=== PATIENT | female | born 1990 | race Two or more races ===

== ENCOUNTER 2017-06-04 23:10 | Emergency (ER) | payer OTHER ==
[~2017-06-04] VITALS: Ht 170.2 cm; Wt 95.3 kg
[2017-06-04 23:30] VITALS: BP 147/92
[2017-06-04] MEDS ORDERED: Albuterol ud Inhalation HHN ONE (23:45)
[2017-06-04] MEDS ORDERED: Ketorolac 60mg Inj IM ONE (23:45)
[2017-06-04] MEDS ORDERED: AMOXICILLIN500 MG ORAL (23:45)
--- NOTE | 2017-06-05 00:01 | Emergency Room Report ---
History of Present Illness General Chief Complaint: Upper Respiratory Illness Source: Patient Present Illness HPI 26YOF [employer] walk-in with 1 week of dry cough, right sided sore throat, and difficulty breathing at night. Non-smoker Mother has asthma Went to [facility] 2 days ago - got cough syrup, ventolin. Using but no improvement. Cough worse at night Denies other med problems Allergies: Coded Allergies: No Known Allergies (Unverified , 06/04/17) Patient History Past Medical History: none Past Surgical History: none Pertinent Family History: asthma Social History: Denies: alcohol use, drug use, smoking Last Menstrual Period: 05/09/17 Now: No Immunizations: UTD Reviewed Nursing Documentation: PMH: Agreed, PSxH: Agreed Nursing Documentation-PMH Past Medical History: No Stated History Review of Systems All Other Systems: negative except mentioned in HPI Physical Exam Vital Signs Date Time Temp Pulse Resp B/P Pulse Ox O2 Delivery O2 Flow Rate FiO2 06/04/17 23:17 97.3 105 16 147/92 98 Room Air Sp02 EP Interpretation: reviewed, normal General Appearance: normal inspection, well appearing, no apparent distress, alert, GCS 15, non-toxic Head: normocephalic, atraumatic Eyes: bilateral eye EOMI, bilateral eye PERRL ENT: normal ENT inspection, hearing grossly normal, no angioedema, normal voice , other - Right tonsill swelling, inflammation pushing on uvula. No palpable right AUDIOVISUAL TECH Neck: normal inspection, full range of motion, supple, no meningismus, no bony tend Respiratory: normal inspection, lungs clear, normal breath sounds, no respiratory distress, no retraction, no wheezing Cardiovascular #1: regular rate, rhythm, no edema Gastrointestinal: normal inspection, normal bowel sounds, non tender, soft, no guarding, no hernia Genitourinary: no CVA tenderness Musculoskeletal: normal inspection, back normal, normal range of motion, Rose Mary' s Sign negative Neurologic: normal inspection, alert, oriented x3, responsive, basic acoustic analyst III-XII nml as tested, motor strength/tone normal, speech normal Psychiatric: normal inspection, judgement/insight normal, mood/affect normal Skin: normal inspection, normal color, no rash Medical Decision Making Diagnostic Impression: Primary Impression: Upper respiratory infection Qualified Codes: J06.9 - Acute upper respiratory infection, unspecified; B97.89 - Other viral agents as the cause of diseases classified elsewhere Additional Impression: Tonsillitis ER Course - Improved with albuterol neb in ED - Rx Amox for tonsillitis - Advised continued using albuterol/cough syrup already prescribed - Likely URI, bronchitis, now with right tonsillitis DC home Last Vital Signs Date Time Temp Pulse Resp B/P Pulse Ox O2 Delivery O2 Flow Rate FiO2 06/04/17 23:30 105 16 Room Air 06/04/17 23:30 97.3 147/92 98 Status: improved Disposition: HOME, SELF-CARE Condition: Improved Scripts Amoxicillin* (AMOXIL*) 500 Mg Capsule 500 MG ORAL THREE TIMES A DAY for 7 Days, #21 CAP Prov: NED SNIDER M.D. 06/04/17 Referrals: EMPLOYEE [employer],[facility] (PCP) Patient Instructions: Upper Respiratory Infection, Adult, Tonsillitis, Easy-to- Read Additional Instructions: - Finish ALL antibiotics as prescribed - Use albuterol inhaler during the day for cough and at night use cough syrup and tea with honey - Follow up with your primary care doctor in 2-3 days NED SNIDER M.D. Jun 05, 2017 00:01
[2017-06-05 00:16] VITALS: BP 147/92
== END 2017-06-05 00:16 | disposition home or self-care (01) ==
LOC: EMR 23:25
DX: J06.9 Acute upper respiratory infection, unspecified (principal); J03.90 Acute tonsillitis, unspecified
CPT/HCPCS: 94640; 96372; 99283

== ENCOUNTER 2017-06-08 07:41 | Emergency (ER) | payer OTHER ==
[~2017-06-08] VITALS: Ht 167.6 cm; Wt 95.3 kg
[~2017-06-08 07:41] MED LIST: AMOXICILLIN500 MG ORAL
[2017-06-08 07:55] VITALS: BP 150/91
--- NOTE | 2017-06-08 08:04 | Emergency Room Report ---
History of Present Illness General Chief Complaint: Dyspnea/Respdistress Source: Patient Present Illness HPI This is a 26-year-old female presented after increased cough for one week. Patient gradual onset of symptoms. Patient had been taking amoxicillin for several days for tonsillitis. Patient was noted to have cough with a yellow sputum. Patient reported having increased difficulty breathing. Patient had been previously seen at [facility] as well as a [facility] for similar symptoms. Patient stated that cough had not improved. She had been taking nebulizer treatments. Allergies: Coded Allergies: No Known Allergies (Unverified , 06/04/17) Patient History Past Medical History: see triage record Last Menstrual Period: 05/14/17 Now: No Reviewed Nursing Documentation: PMH: Agreed, PSxH: Agreed Nursing Documentation-PMH Past Medical History: No Stated History Review of Systems All Other Systems: negative except mentioned in HPI Physical Exam Vital Signs Date Time Temp Pulse Resp B/P Pulse Ox O2 Delivery O2 Flow Rate FiO2 06/08/17 07:45 98.8 110 15 130/88 93 Room Air Sp02 EP Interpretation: reviewed, normal General Appearance: normal inspection, well appearing, no apparent distress, alert, GCS 15 Head: atraumatic ENT: normal ENT inspection, hearing grossly normal, normal voice, tonsillar swelling Neck: normal inspection, full range of motion, supple, no bony tend Respiratory: normal inspection, no respiratory distress, no retraction, rhonchi - right lung Cardiovascular #1: regular rate, rhythm, no edema Gastrointestinal: normal inspection, normal bowel sounds, non tender, soft, no guarding, no hernia Genitourinary: no CVA tenderness Musculoskeletal: normal inspection, back normal, normal range of motion Neurologic: normal inspection, alert, oriented x3, responsive, projects manager III-XII nml as tested, speech normal Psychiatric: normal inspection, judgement/insight normal, mood/affect normal Skin: normal inspection, normal color, no rash Medical Decision Making ER Course Presented for cough. Differential diagnosis included but was not limited to bronchitis, pneumonia, pulmonary embolism, pericarditis, asthma, foreign body. Chest x-ray was ordered one view due to patient's worsening cough and difficulty with to breathing.The patient was noted to have adequate oxygen saturation.A chest x-ray showed a right lung atelectasis. Patient was given breathing treatment as well as by mouth Decadron. The patient was noted to be on antibiotics is advised to continue her antibiotics.The patient is advised to follow up with primary care doctor in 1-2 days. Patient is advised to return if any worsening condition or if any changes in status that are concerning. Chest X-Ray Diagnostic Results Chest X-Ray Diagnostic Results : Chest X-Ray Ordered: Yes # of Views/Limited/Complete: 1 View Indication: Chest Pain EP Interpretation: Yes Interpretation: no consolidation, no effusion, no pneumothorax, other - atelectasis Impression: No acute disease Interpreting ER Provider: Electronically signed by Dr. Mick Mancini M.D. Last Vital Signs Date Time Temp Pulse Resp B/P Pulse Ox O2 Delivery O2 Flow Rate FiO2 06/08/17 07:45 98.8 110 15 130/88 93 Room Air Status: improved Disposition: HOME, SELF-CARE Condition: Scripts Loratadine (CLARITIN) 10 Mg Capsule 10 MG ORAL DAILY, #30 CAP Prov: Mick Mancini 06/08/17 Mick Mancini Jun 08, 2017 08:04
[2017-06-08] MEDS ORDERED: DuoNeb 0.5-3(2.5)mg/3ml neb HHN ONE (08:15)
[2017-06-08] MEDS ORDERED: CLARITIN10 M2 ORAL (08:56)
--- NOTE | 2017-06-08 09:11 | Diagnostic Imaging Report ---
Indication: Shortness of breath Technique: XRAY CHEST 1 V Comparison: None Findings: Cardiomediastinal silhouette is within normal limits. There is slight hazy appearance in the right medial lung base. Osseous structures demonstrate no acute abnormality. Impression: Slight hazy appearance in the right medial lung base and a subtle infiltrate cannot be excluded. Clinical correlation/followup recommended.
[2017-06-08] MEDS ORDERED: ALBUTEROL2.5 MG/3 M INH (09:16)
[2017-06-08 09:19] VITALS: BP 141/88
== END 2017-06-08 09:25 | disposition home or self-care (01) ==
LOC: EMR 08:07
DX: R05 Cough (principal); J98.11 Atelectasis; R07.9 Chest pain, unspecified
CPT/HCPCS: 71010; 81025; 94640; 94664; 99283; J8540; J7620

== ENCOUNTER 2017-11-09 09:49 | Emergency (ER) | payer OTHER ==
[~2017-11-09] VITALS: Ht 167.6 cm; Wt 99.8 kg
[~2017-11-09 09:49] MED LIST changes: +ALBUTEROL2.5 MG/3 M INH; +CLARITIN10 M2 ORAL
[2017-11-09] MEDS ORDERED: CRYSELLE1 EACH ORAL (09:58)
[2017-11-09 10:15] VITALS: BP 154/93
--- NOTE | 2017-11-09 10:28 | Emergency Room Report ---
History of Present Illness General Chief Complaint: Abdominal Pain Source: Patient Present Illness HPI 27-year-old female with no sig pmhx p/w nausea vomiting diarrhea for one day Pt reports n/v, 4 episodes of nbnb vomiting, 4 episodes of watery non bloody diarrhea Also complains of abdominal pain, Patient states pain started gradually after throwing up, localized to epigastric area, non radiating, burning in nature, intermittent. No relieving or exacerbating factors. Severity is 5/10. Denies fever, chills. No hx of abdominal surgeries. No hx of endoscopies/colonoscopies. No recent travel, no recent antibiotic use Allergies: Coded Allergies: No Known Allergies (Unverified , 06/04/17) Patient History Past Medical History: see triage record Past Surgical History: none Pertinent Family History: none Last Menstrual Period: 09/2017 Now: No Reviewed Nursing Documentation: PMH: Agreed, PSxH: Agreed Nursing Documentation-PMH Past Medical History: No History, Except For Review of Systems All Other Systems: negative except mentioned in HPI Physical Exam Vital Signs Date Time Temp Pulse Resp B/P (MAP) Pulse Ox O2 Delivery O2 Flow Rate FiO2 11/09/17 09:53 97.3 77 16 145/89 99 Room Air Sp02 EP Interpretation: reviewed, normal General Appearance: alert, GCS 15, non-toxic, mild distress Head: normocephalic, atraumatic Eyes: bilateral eye normal inspection, bilateral eye PERRL, bilateral eye EOMI ENT: normal ENT inspection, normal pharynx, normal voice, moist mucus membranes Neck: normal inspection, full range of motion, supple Respiratory: normal inspection, lungs clear, normal breath sounds, no respiratory distress, no retraction, no wheezing, speaking full sentences, chest symmetrical Cardiovascular #1: normal inspection, regular rate, rhythm, normal capillary refill Cardiovascular #2: 2+ radial (R), 2+ radial (L) Gastrointestinal: soft, non-distended, no guarding, other - mild epigastric tenderness, nontender all other parts of abdomen Musculoskeletal: normal inspection, back normal, normal range of motion, non- tender Neurologic: normal inspection, alert, oriented x3, responsive, motor strength/ tone normal, sensory intact, normal gait, speech normal Psychiatric: normal inspection, judgement/insight normal, memory normal Skin: normal inspection, normal color, no rash, warm/dry, well hydrated, normal turgor Medical Decision Making Diagnostic Impression: Primary Impression: Nausea, vomiting and diarrhea ER Course 27-year-old female with nausea vomiting diarrhea abdominal pain Differential Diagnosis: Gastritis, gastroenteritis, cholecystitis, appendicitis, diverticulitis, UTI/ pyelo At this time abdomen is soft nontender, not likely to have acute intra- abdominal surgical pathology, will hold CT for now. Right upper quadrant is nontender Plan: Basic labs, ua Pepcid, Zofran pain control, IVF ER course: Patient has remained stable during ED stay. Pain improved. Repeat abdominal exam is nontender. Tolerating PO labs unremarkable Disposition: Patient is to be discharged to home. Patient is instructed to follow up with their primary care doctor within 5 days. Strict return precautions discussed with patient such as fever, chills, worsening/severe abdominal pain, nausea, vomiting, black or bloody stools, which may indicate severe illness. Patient verbalizes understanding and agrees with plan. Please note that this Emergency Department Report was dictated using [employer] polisher hand technology software, occasionally this can lead to erroneous entry secondary to interpretation by the dictation equipment Rhythm Strip EP Interpretation: Yes Rate: 80 Rhythm: NSR, no PVCs, no ectopy Laboratory Tests Test 11/09/17 10:15 White Blood Count 13.0 K/UL (4.8-10.8) H Red Blood Count 4.92 M/UL (4.20-5.40) Hemoglobin 11.5 G/DL (12.0-16.0) L Hematocrit 37.7 % (37.0-47.0) Mean Corpuscular Volume 77 FL (80-99) L Mean Corpuscular Hemoglobin 23.4 PG (27.0-31.0) L Mean Corpuscular Hemoglobin Concent 30.5 G/DL (32.0-36.0) L Red Cell Distribution Width 16.6 % (11.6-14.8) H Platelet Count 496 K/UL (150-450) H Mean Platelet Volume 5.0 FL (6.5-10.1) L Neutrophils (%) (Auto) 71.0 % (45.0-75.0) Lymphocytes (%) (Auto) 21.4 % (20.0-45.0) Monocytes (%) (Auto) 6.2 % (1.0-10.0) Eosinophils (%) (Auto) 0.6 % (0.0-3.0) Basophils (%) (Auto) 0.8 % (0.0-2.0) Urine Color Pale yellow Urine Appearance Clear Urine pH 6 (4.5-8.0) Urine Specific Gregory 1.015 (1.005-1.035) Urine Protein 3+ (NEGATIVE) H Urine Glucose (UA) Negative (NEGATIVE) Urine Ketones Negative (NEGATIVE) Urine Occult Blood 5+ (NEGATIVE) H Urine Nitrite Negative (NEGATIVE) Urine Bilirubin Negative (NEGATIVE) Urine Urobilinogen Normal MG/DL (0.0-1.0) Urine Leukocyte Esterase 1+ (NEGATIVE) H Urine RBC 5-10 /HPF (0 - 2) H Urine WBC 2-4 /HPF (0 - 2) Urine Squamous Epithelial Cells Few /LPF (NONE/OCC) Urine Bacteria Few /HPF (NONE) Urine HCG, Qualitative Negative Sodium Level 139 MMOL/L (136-145) Potassium Level 4.0 MMOL/L (3.5-5.1) Chloride Level 103 MMOL/L (98-107) Carbon Dioxide Level 25 MMOL/L (21-32) Anion Gap 12 mmol/L (5-15) Blood Urea Nitrogen 6 mg/dL (7-18) L Creatinine 0.7 MG/DL (0.55-1.30) Estimate Glomerular Filtration Rate > 60 mL/min (>60) Glucose Level 95 MG/DL (74-106) Calcium Level 9.3 MG/DL (8.5-10.1) Total Bilirubin 0.3 MG/DL (0.2-1.0) Aspartate Amino Transferase (AST) 16 U/L (15-37) Alanine Aminotransferase (ALT) 19 U/L (12-78) Alkaline Phosphatase 66 U/L (46-116) Total Protein 9.3 G/DL (6.4-8.2) H Albumin 3.5 G/DL (3.4-5.0) Globulin 5.8 g/dL Albumin/Globulin Ratio 0.6 (1.0-2.7) L Lipase 67 U/L (73-393) L Last Vital Signs Date Time Temp Pulse Resp B/P (MAP) Pulse Ox O2 Delivery O2 Flow Rate FiO2 11/09/17 09:53 97.3 77 16 145/89 99 Room Air Disposition: HOME, SELF-CARE Condition: Improved Scripts Ondansetron Odt* (ZOFRAN ODT*) 4 Mg Tab.rapdis 4 MG ORAL Q6H Y for Nausea & Vomiting, #10 TAB 0 Refills Prov: Ryan Stark M.D. 11/09/17 Referrals: [facility] (PCP) Ryan Stark M.D. Nov 09, 2017 10:28
[2017-11-09 10:33] LABS: APPEARANCE,URINE CLEAR; BASOPHILS % (AUTO) 0.8 % (0.0-2.0); EOSINOPHILS % (AUTO) 0.6 % (0.0-3.0); KETONES,URINE NEGATIVE (NEGATIVE); LEUKOCYTE ESTERASE ,URINE 1+ (NEGATIVE); LYMPHOCYTES % (AUTO) 21.4 % (20.0-45.0); MEAN CORPUSCULAR HEMOGLOBIN 23.4 PG (27.0-31.0); MEAN CORPUSCULAR HGB CONC 30.5 G/DL (32.0-36.0); MEAN CORPUSCULAR VOLUME 77 FL (80-99); MONOCYTES % (AUTO) 6.2 % (1.0-10.0); NITRITE,URINE NEGATIVE (NEGATIVE); PH,URINE 6 (4.5-8.0); PLATELET COUNT 496 K/UL (150-450); PROTEIN,URINE 3+ (NEGATIVE); RED BLOOD COUNT 4.92 M/UL (4.20-5.40); RED CELL DISTRIBUTION WIDTH 16.6 % (11.6-14.8); UROBILINOGEN,URINE NORMAL MG/DL (0.0-1.0)
[2017-11-09 10:50] LABS: ANION GAP 12 mmol/L (5-15); BACTERIA,URINE FEW /HPF; CALCIUM 9.3 MG/DL (8.5-10.1); CARBON DIOXIDE 25 MMOL/L (21-32); CHLORIDE 103 MMOL/L (98-107); CREATININE 0.7 MG/DL (0.55-1.30); GLOMERULAR FILTRATION RATE > 60 mL/min (>60); SODIUM 139 MMOL/L (136-145); SQUAMOUS EPITHELIAL CELL,UR FEW /LPF (NONE/OCC)
[2017-11-09 10:54] LABS: ALANINE AMINOTRANSFERASE 19 U/L (12-78); ALBUMIN/GLOBULIN RATIO 0.6 (1.0-2.7); ASPARTATE AMINO TRANSFERASE 16 U/L (15-37); LIPASE 67 U/L (73-393); TOTAL PROTEIN 9.3 G/DL (6.4-8.2)
[2017-11-09] MEDS ORDERED: ZOFRAN ODT4 MG ORAL (11:07)
[2017-11-09 11:15] VITALS: BP 127/77
== END 2017-11-09 11:15 | disposition home or self-care (01) ==
LOC: EMR 10:00
DX: R11.2 Nausea with vomiting, unspecified (principal); R19.7 Diarrhea, unspecified
CPT/HCPCS: 36415; 80053; 81003; 81025; 83690; 85025; 96361; 96374; 96375; 99284; J2405; S0028

== ENCOUNTER 2018-02-15 07:03 | Emergency (ER) | payer OTHER ==
[~2018-02-15] VITALS: Ht 167.6 cm; Wt 99.8 kg
[~2018-02-15 07:03] MED LIST changes: +CRYSELLE1 EACH ORAL; +ZOFRAN ODT4 MG ORAL
--- NOTE | 2018-02-15 07:53 | Emergency Room Report ---
History of Present Illness General Chief Complaint: Abdominal Pain Source: Patient Present Illness HPI The patient presents with epigastric pain and vomiting. This began last night. She's drinking beer and had some unusual foods. She's been not vomiting blood and has no melena. She does have diarrhea but brown in color. She states her last period was February 06 in normal for her. She's had chills without documented fever. The pain is 5/10 and burning. She's had this problem before. Patient also states that she is anemic. No headache, joint pain, dysuria, rashes. Allergies: Coded Allergies: No Known Allergies (Unverified , 02/15/18) Patient History Past Medical History: see triage record Social History: Reports: alcohol use Social History Narrative with Mom Last Menstrual Period: 02/06/18 Now: No Reviewed Nursing Documentation: PMH: Agreed; PSxH: Agreed Nursing Documentation-PMH Past Medical History: No History, Except For Review of Systems All Other Systems: negative except mentioned in HPI Physical Exam Vital Signs Date Time Temp Pulse Resp B/P (MAP) Pulse Ox O2 Delivery O2 Flow Rate FiO2 02/15/18 07:05 97.9 85 18 141/93 98 Room Air 97.9 Sp02 EP Interpretation: reviewed, normal General Appearance: well appearing, GCS 15, mild distress - with vomiting Head: normocephalic Eyes: bilateral eye normal inspection, bilateral eye PERRL ENT: moist mucus membranes Neck: supple Respiratory: lungs clear, normal breath sounds Cardiovascular #1: regular rate, rhythm Cardiovascular #2: 2+ radial (R) Gastrointestinal: normal inspection, normal bowel sounds, no mass, non- distended, no guarding, no rebound, tenderness - epigastric, minimal, overweight Genitourinary: no CVA tenderness Musculoskeletal: back normal, gait/station normal, normal range of motion Neurologic: alert, oriented x3, grossly normal Psychiatric: anxious Skin: normal inspection, warm/dry Medical Decision Making Diagnostic Impression: Primary Impression: Abdominal pain Qualified Codes: R10.13 - Epigastric pain Additional Impressions: Nausea & vomiting Qualified Codes: R11.2 - Nausea with vomiting, unspecified UTI (urinary tract infection) Qualified Codes: N30.00 - Acute cystitis without hematuria ER Course Patient presents with epigastric pain. Differential includes gastritis, GERD, he has gastroenteritis, food poisoning, pancreatitis amongst others. Evaluation will be with labs. She will be with IV hydration, Pepcid Zofran and morphine. Pain not in RUQ - doubt gall bladder disease. Repeat zofran needed. Labs unremarkable except for pyuria. Rocephin given. Tolerating oral intake. Improved. Patient stable for outpatient observation and treatment. Laboratory Tests Test 02/15/18 08:22 02/15/18 08:40 02/15/18 10:05 Sodium Level 137 MMOL/L (136-145) Potassium Level 4.4 MMOL/L (3.5-5.1) Chloride Level 104 MMOL/L (98-107) Carbon Dioxide Level 26 MMOL/L (21-32) Anion Gap 7 mmol/L (5-15) Blood Urea Nitrogen 4 mg/dL (7-18) L Creatinine 0.6 MG/DL (0.55-1.30) Estimate Glomerular Filtration Rate > 60 mL/min (>60) Glucose Level 96 MG/DL (74-106) Calcium Level 8.7 MG/DL (8.5-10.1) Total Bilirubin 0.3 MG/DL (0.2-1.0) Aspartate Amino Transferase (AST) 46 U/L (15-37) H Alanine Aminotransferase (ALT) 41 U/L (12-78) Alkaline Phosphatase 64 U/L (46-116) Total Protein 8.6 G/DL (6.4-8.2) H Albumin 3.4 G/DL (3.4-5.0) Globulin 5.2 g/dL Albumin/Globulin Ratio 0.7 (1.0-2.7) L Lipase 182 U/L (73-393) White Blood Count 8.8 K/UL (4.8-10.8) Red Blood Count 4.86 M/UL (4.20-5.40) Hemoglobin 12.6 G/DL (12.0-16.0) Hematocrit 39.8 % (37.0-47.0) Mean Corpuscular Volume 82 FL (80-99) Mean Corpuscular Hemoglobin 26.0 PG (27.0-31.0) L Mean Corpuscular Hemoglobin Concent 31.7 G/DL (32.0-36.0) L Red Cell Distribution Width 17.9 % (11.6-14.8) H Platelet Count 354 K/UL (150-450) Mean Platelet Volume 5.2 FL (6.5-10.1) L Neutrophils (%) (Auto) 69.3 % (45.0-75.0) Lymphocytes (%) (Auto) 24.8 % (20.0-45.0) Monocytes (%) (Auto) 4.5 % (1.0-10.0) Eosinophils (%) (Auto) 0.5 % (0.0-3.0) Basophils (%) (Auto) 0.9 % (0.0-2.0) Urine Color [place] Urine Appearance Slightly cloudy Urine pH 6.5 (4.5-8.0) Urine Specific Yale 1.015 (1.005-1.035) Urine Protein 2+ (NEGATIVE) H Urine Glucose (UA) Negative (NEGATIVE) Urine Ketones Negative (NEGATIVE) Urine Occult Blood 3+ (NEGATIVE) H Urine Nitrite Negative (NEGATIVE) Urine Bilirubin Negative (NEGATIVE) Urine Ictotest Negative Urine Urobilinogen Normal MG/DL (0.0-1.0) Urine Leukocyte Esterase 1+ (NEGATIVE) H Urine RBC 15-20 /HPF (0 - 2) H Urine WBC 10-15 /HPF (0 - 2) H Urine Squamous Epithelial Cells Moderate /LPF (NONE/OCC) H Urine Bacteria Few /HPF (NONE) Urine HCG, Qualitative Negative (NEGATIVE) Last Vital Signs Date Time Temp Pulse Resp B/P (MAP) Pulse Ox O2 Delivery O2 Flow Rate FiO2 02/15/18 11:37 74 16 139/90 97 Room Air 02/15/18 11:34 97.7 97.7 Status: improved Disposition: HOME, SELF-CARE Condition: Improved Scripts Nitrofurantoin Monohyd/M-Cryst* (MACROBID 100 MG*) 100 Mg Capsule 100 MG ORAL EVERY 12 HOURS, #14 CAP Prov: Dannie Alvarez M.D. 02/15/18 Tramadol Hcl* (ULTRAM*) 50 Mg Tablet 50 MG ORAL Q6H PRN for For Pain, #6 TAB 0 Refills Prov: Dannie Alvarez M.D. 02/15/18 Famotidine (PEPCID) 20 Mg Tablet 20 MG ORAL DAILY, #30 TAB 0 Refills Prov: Dannie Alvarez M.D. 02/15/18 Ondansetron Odt* (ZOFRAN ODT*) 4 Mg Tab.rapdis 4 MG ORAL Q8H PRN for Nausea & Vomiting, #6 TAB 0 Refills Prov: Dannie Alvarez M.D. 02/15/18 Dannie Alvarez M.D. Feb 15, 2018 07:53
[2018-02-15] MEDS ORDERED: Morphine Sulfate 4mg/ml Inj IVP ONE (08:00)
[2018-02-15 08:46] LABS: ANION GAP 7 mmol/L (5-15); BLOOD UREA NITROGEN 4 mg/dL (7-18); CALCIUM 8.7 MG/DL (8.5-10.1); CARBON DIOXIDE 26 MMOL/L (21-32); CHLORIDE 104 MMOL/L (98-107); CREATININE 0.6 MG/DL (0.55-1.30); POTASSIUM 4.4 MMOL/L (3.5-5.1); SODIUM 137 MMOL/L (136-145)
[2018-02-15 08:50] LABS: ALANINE AMINOTRANSFERASE 41 U/L (12-78); ALBUMIN 3.4 G/DL (3.4-5.0); ALBUMIN/GLOBULIN RATIO 0.7 (1.0-2.7); ALKALINE PHOSPHATASE 64 U/L (46-116); ASPARTATE AMINO TRANSFERASE 46 U/L (15-37); BILIRUBIN,TOTAL 0.3 MG/DL (0.2-1.0)
[2018-02-15 09:09] LABS: BASOPHILS % (AUTO) 0.9 % (0.0-2.0); EOSINOPHILS % (AUTO) 0.5 % (0.0-3.0); HEMATOCRIT 39.8 % (37.0-47.0); HEMOGLOBIN 12.6 G/DL (12.0-16.0); LYMPHOCYTES % (AUTO) 24.8 % (20.0-45.0); MEAN CORPUSCULAR VOLUME 82 FL (80-99); MONOCYTES % (AUTO) 4.5 % (1.0-10.0); NEUTROPHILS % (AUTO) 69.3 % (45.0-75.0); PLATELET COUNT 354 K/UL (150-450); RED BLOOD COUNT 4.86 M/UL (4.20-5.40); RED CELL DISTRIBUTION WIDTH 17.9 % (11.6-14.8); WHITE BLOOD COUNT 8.8 K/UL (4.8-10.8)
[2018-02-15 09:38] VITALS: BP 134/98
[2018-02-15 10:25] LABS: APPEARANCE,URINE SLIGHTLY CLOUDY; BILIRUBIN, URINE NEGATIVE (NEGATIVE); COLOR,URINE AMBER; GLUCOSE, URINE (UA) NEGATIVE (NEGATIVE); KETONES,URINE NEGATIVE (NEGATIVE); LEUKOCYTE ESTERASE ,URINE 1+ (NEGATIVE); NITRITE,URINE NEGATIVE (NEGATIVE); PH,URINE 6.5 (4.5-8.0); PROTEIN,URINE 2+ (NEGATIVE); UROBILINOGEN,URINE NORMAL MG/DL (0.0-1.0)
[2018-02-15] MEDS ORDERED: PEPCID20 MG ORAL (10:37)
[2018-02-15] MEDS ORDERED: ZOFRAN ODT4 MG ORAL (10:37)
[2018-02-15] MEDS ORDERED: TRAMADOL HCL50 MG ORAL (10:37)
[2018-02-15] MEDS ORDERED: cefTRIAXone 1 GM in NS 55 ML IVPB ONE (11:00)
[2018-02-15] MEDS ORDERED: NITROFURANTOIN100 M2 ORAL (11:09)
[2018-02-15 11:37] VITALS: BP 139/90
== END 2018-02-15 11:34 | disposition home or self-care (01) ==
LOC: EMR 08:04
DX: R10.13 Epigastric pain (principal); R11.2 Nausea with vomiting, unspecified; N30.00 Acute cystitis without hematuria
CPT/HCPCS: 36415; 80053; 81003; 81025; 83690; 85025; 87086; 96361; 96374; 96375; 99284; J0696; J2270; J2405; S0028

== ENCOUNTER 2018-06-09 19:52 | Emergency (ER) | payer OTHER ==
[~2018-06-09] VITALS: Ht 167.6 cm; Wt 97.5 kg
[~2018-06-09 19:52] MED LIST changes: +NITROFURANTOIN100 M2 ORAL; +PEPCID20 MG ORAL; +TRAMADOL HCL50 MG ORAL
[2018-06-09 20:38] LABS: EOSINOPHILS % (AUTO) 0.8 % (0.0-3.0); HEMATOCRIT 43.5 % (37.0-47.0); HEMOGLOBIN 14.3 G/DL (12.0-16.0); LYMPHOCYTES % (AUTO) 10.1 % (20.0-45.0); MEAN CORPUSCULAR VOLUME 86 FL (80-99); MONOCYTES % (AUTO) 5.2 % (1.0-10.0); NEUTROPHILS % (AUTO) 82.9 % (45.0-75.0); PLATELET COUNT 333 K/UL (150-450); RED BLOOD COUNT 5.08 M/UL (4.20-5.40); RED CELL DISTRIBUTION WIDTH 14.8 % (11.6-14.8); WHITE BLOOD COUNT 17.2 K/UL (4.8-10.8)
[2018-06-09 20:39] LABS: ANION GAP 10 mmol/L (5-15); BLOOD UREA NITROGEN 9 mg/dL (7-18); CALCIUM 9.6 MG/DL (8.5-10.1); CARBON DIOXIDE 24 MMOL/L (21-32); CHLORIDE 101 MMOL/L (98-107); CREATININE 0.7 MG/DL (0.55-1.30); POTASSIUM 4.2 MMOL/L (3.5-5.1); SODIUM 135 MMOL/L (136-145)
[2018-06-09 20:43] LABS: ALANINE AMINOTRANSFERASE 38 U/L (12-78); ALBUMIN 3.8 G/DL (3.4-5.0); ALBUMIN/GLOBULIN RATIO 0.7 (1.0-2.7); ALKALINE PHOSPHATASE 96 U/L (46-116); ASPARTATE AMINO TRANSFERASE 25 U/L (15-37); BILIRUBIN,TOTAL 0.5 MG/DL (0.2-1.0)
[2018-06-09 21:11] VITALS: BP 129/97
--- NOTE | 2018-06-09 21:12 | Emergency Room Report ---
History of Present Illness General Chief Complaint: Nausea, Vomiting, and Diarrhea Source: Patient Present Illness HPI 27-year-old female presents with central abdominal pain, multiple episodes of nausea, vomiting and diarrhea after eating [employer] breakfast morning. No previous abdominal pelvic surgery, no other known medical problems. No urinary complaints. Unable to tolerate by mouth, food or water since. Allergies: Coded Allergies: MORPHINE (Verified Allergy, Mild, pruritis, 06/09/18) Patient History Past Medical History: none Past Surgical History: none Pertinent Family History: none Social History: Denies: smoking, alcohol use, drug use Last Menstrual Period: 06/01/18 Now: No Immunizations: UTD Reviewed Nursing Documentation: PMH: Agreed; PSxH: Agreed Review of Systems All Other Systems: negative except mentioned in HPI Physical Exam Vital Signs Date Time Temp Pulse Resp B/P (MAP) Pulse Ox O2 Delivery O2 Flow Rate FiO2 06/09/18 19:59 98.2 91 18 129/97 98 Room Air 98.2 Sp02 EP Interpretation: reviewed, normal General Appearance: normal inspection, well appearing, no apparent distress, alert, GCS 15, non-toxic, obese Head: normocephalic, atraumatic Eyes: bilateral eye PERRL, bilateral eye EOMI ENT: normal ENT inspection, hearing grossly normal, normal pharynx, no angioedema, normal voice, TMs + canals normal, uvula midline, moist mucus membranes Neck: normal inspection, full range of motion, supple, thyroid normal, no meningismus, no bony tend Respiratory: normal inspection, lungs clear, normal breath sounds, no rhonchi, no respiratory distress, no retraction, no accessory muscle use, no wheezing, speaking full sentences Cardiovascular #1: regular rate, rhythm, no edema, no JVD, normal capillary refill Gastrointestinal: normal inspection, normal bowel sounds, soft, no mass, no peritonitis, non-distended, no guarding, no hernia, no pulsatile mass, other - RLQ ttp Genitourinary: no CVA tenderness Musculoskeletal: normal inspection, back normal, normal range of motion, no calf tenderness, pelvis stable, Rose Mary's Sign negative Neurologic: normal inspection, alert, oriented x3, responsive, clinical reimbursement specialist III-XII nml as tested, motor strength/tone normal, cerebellar normal, normal gait, speech normal Psychiatric: normal inspection, judgement/insight normal, mood/affect normal, no suicidal/homicidal ideation, no delusions Skin: normal inspection, normal color, no rash Lymphatic: normal inspection, no adenopathy Medical Decision Making Diagnostic Impression: Primary Impression: Abdominal pain Qualified Codes: R10.31 - Right lower quadrant pain Additional Impression: Nausea, vomiting, and diarrhea ER Course VSS, afebrile RLQ ttp on exam No peritonitis Elevated leukocytosis Concern for acute appendicitis versus viral gastroenteritis, versus food poisoning Was given Zofran, IV Pepcid Signed out to Dr Alvarez at 10pm to followup CTAP Last Vital Signs Date Time Temp Pulse Resp B/P (MAP) Pulse Ox O2 Delivery O2 Flow Rate FiO2 06/09/18 19:59 98.2 91 18 129/97 98 Room Air 98.2 Status: improved NED SNIDER M.D. Jun 09, 2018 21:12
[2018-06-09 22:17] LABS: APPEARANCE,URINE CLEAR; BILIRUBIN, URINE NEGATIVE (NEGATIVE); COLOR,URINE YELLOW; GLUCOSE, URINE (UA) NEGATIVE (NEGATIVE); KETONES,URINE 1+ (NEGATIVE); LEUKOCYTE ESTERASE ,URINE 1+ (NEGATIVE); NITRITE,URINE NEGATIVE (NEGATIVE); PH,URINE 5 (4.5-8.0); PROTEIN,URINE 2+ (NEGATIVE); UROBILINOGEN,URINE NORMAL MG/DL (0.0-1.0)
[2018-06-10] MEDS ORDERED: TRAMADOL HCL50 MG ORAL (00:26)
[2018-06-10] MEDS ORDERED: ONDANSETRON ODT4 MG BC (00:26)
[2018-06-10 00:27] VITALS: BP 141/83
[2018-06-10 00:30] VITALS: BP 141/83
--- NOTE | 2018-06-10 09:22 | Diagnostic Imaging Report ---
Indication: Abdominal pain Technique: Continuous helical transaxial imaging of the abdomen and pelvis was obtained from the lung bases to the pubic symphysis. No intravenous contrast was administered. Coronal 2-D reformats were also obtained. Automatic Exposure Control was utilized. Total Dose length Product (DLP): 1105.[address] Dose Index Volume (CTDIvol): 19.95 mGy Comparison: none Findings: The lung bases are clear. The liver is hypodense consistent with fatty infiltration. There is liquefied stool in the colon. Correlate for diarrhea and enteritis. No free fluid, free air or evidence of bowel obstruction. The uterus is noted. Urinary bladder is unremarkable. There is no hydronephrosis. IMPRESSION: Query enteritis and diarrhea. Correlate clinically. Fatty liver The CT scanner at [facility] is accredited by the [employer] and the scans are performed using dose optimization techniques as appropriate to a performed exam including Automatic Exposure control.
== END 2018-06-10 00:40 | disposition home or self-care (01) ==
LOC: EMR 20:39
DX: R10.9 Unspecified abdominal pain (principal); R11.2 Nausea with vomiting, unspecified; R19.7 Diarrhea, unspecified; Z88.5 Allergy status to narcotic agent
CPT/HCPCS: 36415; 74176; 80053; 81003; 81025; 83690; 85025; 96361; 96374; 96375; 99284; J2405; S0028

== ENCOUNTER 2018-08-10 02:59 | Emergency (ER) | payer OTHER ==
[~2018-08-10] VITALS: Ht 167.6 cm; Wt 90.7 kg
[~2018-08-10 02:59] MED LIST changes: +ONDANSETRON ODT4 MG BC
--- NOTE | 2018-08-10 03:29 | Emergency Room Report ---
History of Present Illness General Chief Complaint: Alcohol Intoxication Source: Patient, Medical Record Present Illness HPI This 27-year-old female with history of anxiety. She presents with chief complaint of nausea vomiting and abdominal pain. She was drinking heavily tonight. She was vomiting in the bathroom and mom says she passed out. She is crying now. No fever chills. No diarrhea. Vomiting is none bloody and nonbilious. Cramping pain. [place] anxious. No other injury. Allergies: Coded Allergies: MORPHINE (Verified Allergy, Mild, pruritis, 06/09/18) Patient History Past Medical History: see triage record, old chart reviewed Past Surgical History: none Pertinent Family History: none Social History: Reports: alcohol use; Denies: smoking Last Menstrual Period: 07/26/2018 Now: No Immunizations: other Reviewed Nursing Documentation: PMH: Agreed; PSxH: Agreed Nursing Documentation-PMH Past Medical History: No History, Except For Review of Systems Eye: Denies: eye pain, blurred vision ENT: Denies: ear pain, nose congestion, throat swelling Respiratory: Denies: cough, shortness of breath Cardiovascular: Denies: chest pain, palpitations Gastrointestinal: Reports: abdominal pain, nausea, vomiting; Denies: diarrhea Musculoskeletal: Denies: back pain, joint pain Skin: Denies: rash Neurological: Denies: headache, numbness Endocrine: Denies: increased thirst, increased urine Hematologic/Lymphatic: Denies: easy bruising All Other Systems: negative except mentioned in HPI Physical Exam Vital Signs Date Time Temp Pulse Resp B/P (MAP) Pulse Ox O2 Delivery O2 Flow Rate FiO2 08/10/18 03:06 97.2 100 19 118/71 98 Room Air 97.2 vitals normal Sp02 EP Interpretation: reviewed, normal General Appearance: well appearing, no apparent distress, alert Head: normocephalic, atraumatic Eyes: bilateral eye PERRL, bilateral eye EOMI ENT: hearing grossly normal, normal pharynx Neck: full range of motion, supple, no meningismus Respiratory: chest non-tender, lungs clear, normal breath sounds Cardiovascular #1: regular rate, rhythm, no murmur Gastrointestinal: normal bowel sounds, non tender, no mass, no organomegaly, no bruit, non-distended Musculoskeletal: back normal, gait/station normal, normal range of motion Psychiatric: mood/affect normal Skin: warm/dry Medical Decision Making Diagnostic Impression: Primary Impression: Acute alcoholic intoxication Qualified Codes: F10.929 - Alcohol use, unspecified with intoxication, unspecified ER Course She presents with nausea vomiting and anxiety secondary to alcohol intoxication. She is otherwise stable. No evidence of any head trauma. Better now. Sleeping comfortably. We'll discharge home. Lab Results Impression labs normal Last Vital Signs Date Time Temp Pulse Resp B/P (MAP) Pulse Ox O2 Delivery O2 Flow Rate FiO2 08/10/18 03:06 97.2 100 19 118/71 98 Room Air 97.2 Status: improved Disposition: HOME, SELF-CARE Condition: Stable Patient Instructions: Alcohol Intoxication, [id number] Additional Instructions: Did not drink to excess. Follow-up with your doctor in 7 days. Return if worse. ANTHONY CM M.D. Aug 10, 2018 03:29
[2018-08-10 03:40] LABS: BASOPHILS % (AUTO) 0.4 % (0.0-2.0); EOSINOPHILS % (AUTO) 0.3 % (0.0-3.0); HEMATOCRIT 42.2 % (37.0-47.0); HEMOGLOBIN 13.5 G/DL (12.0-16.0); LYMPHOCYTES % (AUTO) 18.9 % (20.0-45.0); MEAN CORPUSCULAR VOLUME 85 FL (80-99); MONOCYTES % (AUTO) 4.7 % (1.0-10.0); NEUTROPHILS % (AUTO) 75.8 % (45.0-75.0); PLATELET COUNT 388 K/UL (150-450); RED BLOOD COUNT 4.94 M/UL (4.20-5.40); RED CELL DISTRIBUTION WIDTH 14.2 % (11.6-14.8); WHITE BLOOD COUNT 8.6 K/UL (4.8-10.8)
[2018-08-10 03:50] LABS: ANION GAP 11 mmol/L (5-15); BLOOD UREA NITROGEN 9 mg/dL (7-18); CALCIUM 9.1 MG/DL (8.5-10.1); CARBON DIOXIDE 25 MMOL/L (21-32); CHLORIDE 104 MMOL/L (98-107); CREATININE 0.6 MG/DL (0.55-1.30); POTASSIUM 3.6 MMOL/L (3.5-5.1); SODIUM 140 MMOL/L (136-145)
[2018-08-10 04:25] VITALS: BP 130/84
[2018-08-10 04:53] VITALS: BP 130/84
== END 2018-08-10 04:50 | disposition home or self-care (01) ==
LOC: EMR 03:24
DX: F10.929 Alcohol use, unspecified with intoxication, unspecified (principal); F41.9 Anxiety disorder, unspecified; R11.2 Nausea with vomiting, unspecified
CPT/HCPCS: 36415; 80048; 80329; 85025; 96374; 99284; J2405

== ENCOUNTER 2018-10-27 12:13 | Emergency (ER) | payer OTHER ==
[~2018-10-27] VITALS: Ht 167.6 cm; Wt 104.3 kg
[2018-10-27] MEDS ORDERED: NKM (12:22)
[2018-10-27] MEDS ORDERED: Benzonatate 100mg Perles ORAL ONE (12:45)
[2018-10-27] MEDS ORDERED: TYLENOL EXTRA500 MG ORAL (12:51)
[2018-10-27] MEDS ORDERED: ALBUTEROL SULF8.5 GM INH (12:51)
[2018-10-27] MEDS ORDERED: PREDNISONE20 MG ORAL (12:51)
--- NOTE | 2018-10-27 12:51 | Emergency Room Report ---
History of Present Illness General Chief Complaint: Upper Respiratory Illness Source: Patient Present Illness HPI 28-year-old female patient presents ER complaining of cough for the past 2 months. Reports was seen by her primary care doctor one month ago and diagnosed with bronchitis, states she was prescribed Claritin, inhaler, antibiotic, states that the antibiotic for 5 days, states she believes it was a Z-Garrett. reports cough symptoms have persisted since that time. reports dry cough , states that when she coughs she has head, abdominal, rib pain, reports pain is reproducible. Denies history of asthma. Denies history of heart disease, heart attack, hypertension. reports dry cough, denies hemoptysis. Denies fever , shortness of breath, vomiting, diarrhea. Denies neck pain or calf pain. Denies recent travel. Denies dysuria, hematuria. Denies taking control medication, denies smoking, denies recent travel, denies hx of cancer. denies photophobia or phonophobia. Denies vision changes. reports cough is worse at night, sometimes has "wheezing symptoms", states that she uses an inhaler as needed as previously instructed. Denies breathing difficulties at this time. Allergies: Coded Allergies: MORPHINE (Verified Allergy, Mild, pruritis, 06/09/18) Patient History Past Medical History: see triage record Now: No Reviewed Nursing Documentation: PMH: Agreed; PSxH: Agreed Nursing Documentation-PMH Past Medical History: No History, Except For Review of Systems All Other Systems: negative except mentioned in HPI Physical Exam Vital Signs Date Time Temp Pulse Resp B/P (MAP) Pulse Ox O2 Delivery O2 Flow Rate FiO2 10/27/18 12:15 78 17 Room Air 10/27/18 12:15 97.5 146/98 100 Sp02 EP Interpretation: reviewed, normal General Appearance: well appearing, no apparent distress, alert, GCS 15, non- toxic Head: normocephalic, atraumatic Eyes: bilateral eye normal inspection, bilateral eye PERRL ENT: hearing grossly normal, normal pharynx, no angioedema, normal voice, TMs + canals normal, uvula midline, moist mucus membranes Neck: full range of motion Respiratory: lungs clear, normal breath sounds, no rhonchi, no respiratory distress, no accessory muscle use, no wheezing, speaking full sentences, other - no stridor Cardiovascular #1: regular rate, rhythm, no edema Cardiovascular #2: 2+ radial (R), 2+ radial (L) Gastrointestinal: normal bowel sounds, non tender, soft, no mass, non-distended , no guarding, no rebound Genitourinary: no CVA tenderness Musculoskeletal: back normal, digits/nails normal, gait/station normal, normal range of motion, non-tender, no calf tenderness, Rose Mary's Sign negative Neurologic: alert, oriented x3, responsive, diesel lube tech III-XII nml as tested, motor strength/tone normal, SLR negative, sensory intact, cerebellar normal, normal gait, speech normal Psychiatric: mood/affect normal Skin: no rash Medical Decision Making PA Attestation Dr. Mott is my supervising Physician whom patient management has been discussed with. Diagnostic Impression: Primary Impression: Bronchitis ER Course Pt presents to ED c/o cough 2 months. DDX considered but are not limited to influenza, viral URI, pneumonia, strep throat, rhinitis, sinusitis, otitis media, otitis externa. negative calf pain, negative Homans sign, no hemoptysis, no tachycardia, no recent travel or immobilization, low suspicion for PE. Chest pain likely musculoskeletal in nature secondary to cough, denies history of smoking, MA, or HTN, does not require cardiac workup at this time. Patient instructed to take NSAIDs as needed for pain symptoms. VITAL SIGNS are WNL, patient is afebrile. ER COURSE: provided patient with cough medication and prednisone in the ER. patient was not observed to cough while in the ER. patient does not cough on the ER. CXR negative for acute disease per the preliminary reading. Compared to previous chest x-ray, improved. cranial nerves intact as tested, no focal neuro deficits, Headache likely related to cough symptoms. Lungs clear to auscultation, no wheezes, rhonci or rales. patient afebrile. Low suspicion for pneumonia. No wheezing, breathing normally, does not require breathing treatment at this time. Likely viral etiology of symptoms. Symptomatic treatment. drink plenty of fluids. Followup with PCP for further treatment and/or referral as needed. ER precautions given DISCHARGE: -Rx given for Prednisone -Rx given for Albuterol -Rx given for Tessalon Perles At this time pt is stable for d/c to home. Patient is resting comfortably, in no acute distress, nontoxic appearing. Patient to take medications as instructed Will provide with patient care instructions and any necessary prescriptions. Care plan and follow-up instructions provided. Patient instructed to follow-up with primary care provider in 3 - 5 days. Patient questions asked and answered. Patient reports understanding and agreement to treatment plan. ER precautions given. Patient instructed to return to ER immediately for any new or worsening of symptoms including but not limited to increasing SOB, persistent fever, intractable vomiting. - Please note that this Emergency Department Report was dictated using [employer] teacher technology software, occasionally this can lead to erroneous entry secondary to interpretation by the dictation equipment. Chest X-Ray Diagnostic Results Chest X-Ray Diagnostic Results : Chest X-Ray Ordered: Yes # of Views/Limited/Complete: 1 View Indication: Chest Pain EP Interpretation: Yes PA Xray: Interpretation reviewed, by supervising MD, and agrees with findings. Interpretation: no consolidation, no effusion, no pneumothorax, no acute cardiopulmonary disease Impression: No acute disease MICHAEL Scribe Text Aneudy Sunshine PA-Aide Last Vital Signs Date Time Temp Pulse Resp B/P (MAP) Pulse Ox O2 Delivery O2 Flow Rate FiO2 10/27/18 12:15 97.5 78 17 146/98 100 Room Air Status: improved Disposition: HOME, SELF-CARE Condition: Stable Scripts Prednisone* (PREDNISONE*) 20 Mg Tablet 40 MG ORAL DAILY for 4 Days, #8 TAB Prov: Evin Sunshine 10/27/18 Acetaminophen* (TYLENOL EXTRA STRENGTH*) 500 Mg Tablet 500 MG ORAL Q8H PRN for Prn Headache/Temp > 101, #30 TAB 0 Refills Prov: Evin Sunshine 10/27/18 Albuterol Sulfate* (ALBUTEROL SULFATE MDI*) 8.5 Gm Hfa.aer.ad 2 PUFF INH Q6H, #1 INH 0 Refills Prov: Evin Sunshine 10/27/18 Patient Instructions: Acute Bronchitis, [id number] Additional Instructions: Followup with primary care provider in 3 -5 days. Discuss referral to horseback excavator and need for further breathing medication. Take medications as directed. Begin taking prednisone medication tomorrow, first does given in the ER. Patient questions asked and answered. ER precautions given, patient instructed to return to ER immediately for any new or worsening of symptoms. Evin Sunshine Oct 27, 2018 12:51
[2018-10-27 13:50] VITALS: BP 146/98
[2018-10-27 13:51] VITALS: BP 146/98
--- NOTE | 2018-10-27 14:19 | Diagnostic Imaging Report ---
Indication: Chest pain Technique: One view of the chest Comparison: 06/08/2017 Findings: Suboptimal inspiration currently. Lungs and pleural spaces are clear. The heart size is normal. Impression: No acute process
== END 2018-10-27 13:50 | disposition home or self-care (01) ==
LOC: EMR 13:13
DX: J40 Bronchitis, not specified as acute or chronic (principal); Z88.5 Allergy status to narcotic agent
CPT/HCPCS: 71045; 99283; J7512

== ENCOUNTER 2019-01-09 20:03 | Emergency (ER) | payer MEDICAID, OTHER ==
[~2019-01-09] VITALS: Ht 167.6 cm; Wt 90.7 kg
[~2019-01-09 20:03] MED LIST changes: +ALBUTEROL SULF8.5 GM INH; +NKM; +PREDNISONE20 MG ORAL; +TYLENOL EXTRA500 MG ORAL
[2019-01-09] MEDS ORDERED: UNOBMED (20:14)
--- NOTE | 2019-01-09 20:20 | NUR ---
ED Nurse Note: Pt arrived ED from home, c/o right leg injuried aftwer fell when she was shopping today. Pt is A/O X4. VSS.
[2019-01-09] MEDS ORDERED: Lidocaine 1% 10mg/ml/Epi 0.005mg/ml 30ml vial INJ ONE (20:30)
[2019-01-09] MEDS ORDERED: BACITRACIN ZIN1 EACH TOPIC (21:01)
[2019-01-09] MEDS ORDERED: IBUPROFEN600 MG ORAL (21:01)
[2019-01-09] MEDS ORDERED: CEPHALEXIN500 MG ORAL (21:01)
--- NOTE | 2019-01-09 21:07 | Diagnostic Imaging Report ---
EXAM: XR Right Tibia and Fibula, 2 Views CLINICAL HISTORY: PAIN TECHNIQUE: Frontal and lateral views of the right tibia and fibula. COMPARISON: No relevant prior studies available. FINDINGS: Bones/joints: No acute displaced fracture or dislocation. Soft tissues: Unremarkable. No radiopaque foreign body. IMPRESSION: No acute displaced fracture or dislocation.
--- NOTE | 2019-01-09 21:10 | NUR ---
ED Nurse Note: Suture was done by DR. Martines, Dressing applied.
--- NOTE | 2019-01-09 21:16 | NUR ---
ED Nurse Note: Pt has seen by Dr. Mancini. All orders carried out. x-ray done, suturing done. Tetanus given. Pt is ready for discharge. D/c instruction and prescription given to Pt . Pt d/c from ED with steady gait.
--- NOTE | 2019-01-09 21:17 | Emergency Room Report ---
History of Present Illness General Chief Complaint: Laceration Source: Patient Present Illness HPI Patient is a 28-year-old female presented after increased right lower extremity pain. Patient reportedly had fallen onto an escalator and had cut her right lower extremity on the edge of the step. Injury occurred approximately 30 minutes prior to arrival. Patient denies recent tetanus vaccine. She had been having increased pain with ambulation prior to arrival. She denies prior medical history. Allergies: Coded Allergies: MORPHINE (Verified Allergy, Mild, pruritis, 06/09/18) Patient History Past Medical History: see triage record Last Menstrual Period: 12/09/2018 Now: No Reviewed Nursing Documentation: PMH: Agreed; PSxH: Agreed Nursing Documentation-PMH Past Medical History: No History, Except For Review of Systems All Other Systems: negative except mentioned in HPI Physical Exam Vital Signs Date Time Temp Pulse Resp B/P (MAP) Pulse Ox O2 Delivery O2 Flow Rate FiO2 01/09/19 20:12 98.1 117 20 162/94 96 Room Air General Appearance: well appearing, no apparent distress, alert, GCS 15, obese Head: normocephalic, atraumatic ENT: hearing grossly normal, normal voice Neck: full range of motion, supple Respiratory: lungs clear, no respiratory distress, speaking full sentences Cardiovascular #1: normal inspection Gastrointestinal: normal inspection Musculoskeletal: other - Lower extremity laceration linear, associated abrasions. Neurologic: normal inspection, alert, oriented x3, responsive, normal gait Psychiatric: mood/affect normal Skin: no rash, laceration - 10 cm linear Procedures Laceration/Wound Repair Laceration/Wound Repair : Consent: Emergent Wound Location: lower extremity Wound's Depth, Shape: into muscle Wound Length (cm): 10 Wound Explored: clean Irrigated w/ Saline (ccs): 100 Betadine Prep?: Yes Anesthesia: Lidocaine w/ Epi Volume Anesthetic (ccs): 4 Wound Repaired With: yaya Patient Tolerated: Well Complications: None Medical Decision Making Diagnostic Impression: Primary Impression: Laceration Additional Impression: Abrasion ER Course Patient presented for laceration. Differential diagnoses included foreign body , fracture, nerve injury, arterial injury among others. X-ray imaging of the right lower extremity 2 views interpreted by me showed no foreign body or fracture. Patient's laceration was irrigated. Patient's laceration was closed with skin yaya. Patient was advised wound check in approximately 3 days. Patient was given prescription for oral antibiotics due to location of injury. Patient advised to take aspirin as prescribed for pain. Last Vital Signs Date Time Temp Pulse Resp B/P (MAP) Pulse Ox O2 Delivery O2 Flow Rate FiO2 01/09/19 20:12 98.1 117 20 162/94 96 Room Air Status: improved Disposition: HOME, SELF-CARE Condition: Stable Scripts Ibuprofen* (MOTRIN*) 600 Mg Tablet 600 MG ORAL Q8H PRN for For Pain, #30 TAB 0 Refills Prov: Mick Mancini MD 01/09/19 Cephalexin* (KEFLEX*) 500 Mg Capsule 500 MG ORAL EVERY 6 HOURS, #28 CAP Prov: Mick Mancini MD 01/09/19 Bacitracin Zinc* (BACITRACIN ZINC*) 1 Each Packet 1 APPLIC TOPIC THREE TIMES A DAY, #30 PACKET Prov: Mick Mancini MD 01/09/19 Referrals: NON PHYSICIAN (PCP) Patient Instructions: Laceration Care, Adult Mick Mancini MD Jan 09, 2019 21:17
[2019-01-09 21:18] VITALS: BP 153/91
[2019-01-09] MEDS ORDERED: Tetanus/Diptheria/Pertussis Vaccine 0.5ml Syr IM ONE (21:30)
[2019-01-09 22:16] VITALS: BP 143/91
== END 2019-01-09 21:16 | disposition home or self-care (01) ==
LOC: EMR 20:53
DX: S81.811A Laceration without foreign body, right lower leg, initial encounter (principal); W10.0XXA Fall (on)(from) escalator, initial encounter; Y92.89 Other specified places as the place of occurrence of the external cause; Z23 Encounter for immunization; Z88.5 Allergy status to narcotic agent
CPT/HCPCS: 12004; 73590; 90471; 90715; 99283; Z7502

== ENCOUNTER 2019-01-12 11:21 | Emergency (ER) | payer MEDICAID ==
[~2019-01-12] VITALS: Ht 167.6 cm; Wt 86.2 kg
[~2019-01-12 11:21] MED LIST changes: +BACITRACIN ZIN1 EACH TOPIC; +CEPHALEXIN500 MG ORAL; +IBUPROFEN600 MG ORAL; +UNOBMED
--- NOTE | 2019-01-12 12:06 | NUR ---
ED Nurse Note: PT WALKED IN TO ER TODAY FROM HOME. AOX4. PT HERE FOR WOUND RECHECK AFTER CURTIS WERE PLACED 01/09/19. PT PRESENTS WITH 7 CURTIS. LACERATION SITE CLEAN, DRY, AND INTACT. NO SIGNS OF INFECTION. PT STATES SHE HAS BEEN COMPLIANT WITH ABX REGIMEN. PT DENIES ANY PAIN AT REST.
[2019-01-12 12:08] VITALS: BP 126/82
[2019-01-12] MEDS ORDERED: BACITRACIN-P28.35 GM TP (12:21)
--- NOTE | 2019-01-12 12:22 | Emergency Room Report ---
History of Present Illness General Chief Complaint: Wound Recheck/Suture Removal Source: Patient Present Illness HPI 28 old female patient presents the ER requesting wound check on her left lower extremity status post injury 3 days ago. Reports feeling well. Denies drainage from site. Denies fever, chest pain or shortness of breath. Reports keeping clean and dry. Reports taking medications as instructed. Reports taking medication as previously instructed. Denies other aggravating or relieving factors. Reports able to ambulate without difficulty. Allergies: Coded Allergies: MORPHINE (Verified Allergy, Mild, pruritis, 06/09/18) Patient History Past Medical History: see triage record Last Menstrual Period: 12/09/18 Now: No Reviewed Nursing Documentation: PMH: Agreed; PSxH: Agreed Nursing Documentation-PMH Past Medical History: No History, Except For Review of Systems All Other Systems: negative except mentioned in HPI Physical Exam Vital Signs Date Time Temp Pulse Resp B/P (MAP) Pulse Ox O2 Delivery O2 Flow Rate FiO2 01/12/19 11:39 97.9 81 20 129/79 98 Room Air Sp02 EP Interpretation: reviewed, normal General Appearance: well appearing, no apparent distress, alert, GCS 15, non- toxic Head: normocephalic, atraumatic Eyes: bilateral eye normal inspection, bilateral eye PERRL ENT: hearing grossly normal, normal pharynx, no angioedema, normal voice, uvula midline, moist mucus membranes Neck: full range of motion Respiratory: lungs clear, normal breath sounds, no rhonchi, no respiratory distress, no accessory muscle use, no wheezing, speaking full sentences Cardiovascular #1: regular rate, rhythm, no edema Musculoskeletal: back normal, digits/nails normal, gait/station normal, normal range of motion, non-tender Neurologic: alert, oriented x3, responsive, motor strength/tone normal, sensory intact Psychiatric: mood/affect normal Skin: other - Left anterior lower extremity: Healing laceration, scabbing present, no surrounding erythema or edema, no drainage, no red streaking Medical Decision Making PA Attestation Dr. Mott is my supervising Physician whom patient management has been discussed with. Diagnostic Impression: Primary Impression: Encounter for wound re-check ER Course Pt. presents to the ED requesting wound check of lower leg. Ddx considered but are not limited to cellulitis, abscess, wound check, folliculitis. Vital signs: are WNL, pt. is afebrile ER COURSE: Wound has no signs of infection., no erythema, edema, TTP, sensation is intact to light touch. Advised patient follow-up for staple removal in 7-10 days. ER precautions given. Apply Neosporin to help reduce appearance of scar. DISCHARGE: Patient instructed to continue with medications per initial ER provider instructions. At this time pt. is stable for d/c to home. Patient resting comfortatbly, in no acute distress, nontoxic appearing. Will provide printed patient care instructions and any necessary prescriptions. Care plan and follow up instructions have been discussed with the patient prior to discharge. Patient instructed to follow-up with primary care provider for further treatment and referral. Patient questions asked and answered. ER precautions given. Patient instructed to return to ER immediately for any new or worsening of symptoms including but not limited to fever, worsening of pain symptoms. - Please note that this Emergency Department Report was dictated using [employer] head start director technology software, occasionally this can lead to erroneous entry secondary to interpretation by the dictation equipment. Last Vital Signs Date Time Temp Pulse Resp B/P (MAP) Pulse Ox O2 Delivery O2 Flow Rate FiO2 01/12/19 12:08 98.2 76 18 126/82 99 Room Air Disposition: HOME, SELF-CARE Condition: Stable Scripts Bacitracin/Polymyxin B Sulfate (BACITRACIN-POLYMYXIN OINTMENT) 28.35 Gm Oint...g. 1 APPLIC TP BID, #28 GM Prov: Evin Sunshine 01/12/19 Patient Instructions: Wound Check Additional Instructions: Patient instructed to follow-up with primary care provider for staple removal in 7-10 days. Take medications as directed. Keep wound clean and dry. Patient questions asked and answered. ER precautions given, patient instructed to return to ER immediately for any new or worsening of symptoms. Evin Sunshine Jan 12, 2019 12:21
--- NOTE | 2019-01-12 12:27 | NUR ---
ED Nurse Note: PT SITTING PEACEFULLY IN CHAIR IN NAD. AOX4. PRESCRIPTIONS AND DISCHARGE PAPERWORK EXPLAINED TO PT. PT VERBALIZES UNDERSTANDING AND ALL QUESTIONS ANSWERED. PRESCRIPTIONS AND DISCHARGE PAPERWORK GIVEN TO PT AND ID WRISTBAND REMOVED. PT WALKED OUT OF ER WITH STEADY GAIT.
[2019-01-12 13:35] VITALS: BP 128/80
== END 2019-01-12 12:27 | disposition home or self-care (01) ==
LOC: EMR 12:20
DX: S81.812D Laceration without foreign body, left lower leg, subsequent encounter (principal); Z88.6 Allergy status to analgesic agent
CPT/HCPCS: 99281

== ENCOUNTER 2019-01-21 10:43 | Emergency (ER) | payer MEDICAID ==
[~2019-01-21] VITALS: Ht 167.6 cm; Wt 85.7 kg
[~2019-01-21 10:43] MED LIST changes: +BACITRACIN-P28.35 GM TP
--- NOTE | 2019-01-21 11:40 | NUR ---
ER DISCHARGE NOTE: Patient is cleared to be discharged per ERMD, pt is aox4, on room air, with stable vital signs. pt was given dc and prescription instructions, pt was able to verbalize understanding, pt id band removed. pt is able to ambulate with steady gait. pt took all belongings.
[2019-01-21 11:49] VITALS: BP 141/93
--- NOTE | 2019-01-22 14:55 | Emergency Room Report ---
History of Present Illness General Chief Complaint: Wound Recheck/Suture Removal Source: Patient Present Illness HPI 28-year-old female presents ED for evaluation. Patient is here for staple removal. Sustained laceration to her left lower extremity and 01/09. [place] were placed. Is here for staple removal. Denies any pain. Denies any fevers or chills. Denies any discharge. No other aggravating relieving factors. Denies any other associated symptoms Allergies: Coded Allergies: MORPHINE (Verified Allergy, Mild, pruritis, 06/09/18) Patient History Past Medical History: none Past Surgical History: none Pertinent Family History: none Social History: Denies: smoking, alcohol use, drug use Last Menstrual Period: 01/09/19 Now: No Immunizations: UTD Reviewed Nursing Documentation: PMH: Agreed; PSxH: Agreed Nursing Documentation-PMH Past Medical History: No History, Except For Review of Systems All Other Systems: negative except mentioned in HPI Physical Exam Vital Signs Date Time Temp Pulse Resp B/P (MAP) Pulse Ox O2 Delivery O2 Flow Rate FiO2 01/21/19 10:56 98.1 71 20 141/93 98 Room Air Sp02 EP Interpretation: reviewed, normal General Appearance: no apparent distress, alert, GCS 15, non-toxic Head: normocephalic Eyes: bilateral eye normal inspection, bilateral eye PERRL ENT: normal ENT inspection Neck: normal inspection Respiratory: normal inspection Cardiovascular #1: normal inspection Gastrointestinal: normal inspection Rectal: deferred Genitourinary: no CVA tenderness Musculoskeletal: normal inspection Neurologic: alert, oriented x3, responsive, motor strength/tone normal, sensory intact, speech normal Psychiatric: normal inspection Skin: other - laceration LLE well healed. temo in place. no erythema/ induration Lymphatic: normal inspection Medical Decision Making Diagnostic Impression: Primary Impression: Removal of staple ER Course Patient presents to the emergency department today for staple removal. patient' s wound appears well-healed, and temo are ready to be removed today. Using sterile technique the temo were removed patient tolerated procedure well without any difficulty. Patient was given advice on how to care for the wound patient is advised followup with his private care doctor in 2-3 days and return to emergency room for any worsening conditions as needed Last Vital Signs Date Time Temp Pulse Resp B/P (MAP) Pulse Ox O2 Delivery O2 Flow Rate FiO2 01/21/19 11:49 98.1 85 20 141/93 98 Room Air Status: improved Disposition: HOME, SELF-CARE Condition: Stable Referrals: [facility],REFERRING (PCP) Amy Remy [facility] Patient Instructions: Stitches, Temo, or Adhesive Wound Closure, Easy-to- Read Aamir Mott MD Jan 22, 2019 14:55
== END 2019-01-21 14:00 | disposition home or self-care (01) ==
LOC: EMR 11:30
DX: S81.812D Laceration without foreign body, left lower leg, subsequent encounter (principal); X58.XXXD Exposure to other specified factors, subsequent encounter; Z48.02 Encounter for removal of sutures; Z88.5 Allergy status to narcotic agent
CPT/HCPCS: 99281

== ENCOUNTER 2019-03-04 11:35 | Emergency (ER) | payer MEDICAID ==
[~2019-03-04] VITALS: Ht 167.6 cm; Wt 99.8 kg
[2019-03-04] MEDS ORDERED: NKM (11:50)
[2019-03-04 12:03] VITALS: BP 146/78
--- NOTE | 2019-03-04 12:05 | NUR ---
ED Nurse Note: Pt walked in to ER c/o sore throat /10 and coughing for 4 days with green and thick phlem. pt aao x4 and calm and cooperative. skin clean and intact.
--- NOTE | 2019-03-04 12:23 | Emergency Room Report ---
History of Present Illness General Chief Complaint: Upper Respiratory Illness Source: Patient Present Illness HPI 28-year-old female presents to the emergency department complaining of 6 out of 10 in severity sore throat, cough, nasal congestion and rhinorrhea 5 days. Patient denies fevers or chills she denies ill contacts with similar symptoms or recent travel. Patient denies history of immunocompromise she does state that she is on the anemic side and does need refill of her iron. Patient denies neck pain/stiffness, photophobia, headache or swollen tender lymph nodes. Denies SOB or Dyspnea. She does report some congestion in her ear she denies pain denies ear discharge or tenderness to the ears. No aggravating or relieving factors at this time. Reports cough is worse at night. Denies history of acid reflux. Denies hx of Asthma, COPD or smoking. Allergies: Coded Allergies: MORPHINE (Verified Allergy, Mild, pruritis, 03/04/19) Patient History Past Medical History: see triage record Past Surgical History: none Pertinent Family History: none Last Menstrual Period: 02/23/19 Now: No Reviewed Nursing Documentation: PMH: Agreed; PSxH: Agreed Nursing Documentation-PMH Past Medical History: No History, Except For Review of Systems All Other Systems: negative except mentioned in HPI Physical Exam Vital Signs Date Time Temp Pulse Resp B/P (MAP) Pulse Ox O2 Delivery O2 Flow Rate FiO2 03/04/19 11:46 98.4 72 18 146/78 99 Room Air Sp02 EP Interpretation: reviewed, normal General Appearance: no apparent distress, alert, GCS 15, non-toxic Head: normocephalic, atraumatic Eyes: bilateral eye normal inspection, bilateral eye PERRL ENT: hearing grossly normal, normal voice, TMs + canals normal, uvula midline, nasal congestion, tonsillar exudate Neck: full range of motion, no meningismus Respiratory: chest non-tender, lungs clear, normal breath sounds, no respiratory distress, no accessory muscle use, no wheezing, speaking full sentences Cardiovascular #1: regular rate, rhythm Musculoskeletal: back normal, gait/station normal, normal range of motion, non- tender Neurologic: alert, oriented x3, responsive, motor strength/tone normal, sensory intact, speech normal, grossly normal Psychiatric: judgement/insight normal Skin: normal color, no rash, warm/dry, well hydrated Lymphatic: no adenopathy Medical Decision Making PA Attestation Dr. Alvarez is my supervising Physician whom patient management has been discussed with. Diagnostic Impression: Primary Impression: Viral URI with cough ER Course 28-year-old female presents to the emergency department complaining of 6 out of 10 in severity sore throat, cough, nasal congestion and rhinorrhea 5 days. Patient denies fevers or chills she denies ill contacts with similar symptoms or recent travel. Patient denies history of immunocompromise she does state that she is on the anemic side and does need refill of her iron. Patient denies neck pain/stiffness, photophobia, headache or swollen tender lymph nodes. Denies SOB or Dyspnea. She does report some congestion in her ear she denies pain denies ear discharge or tenderness to the ears. No aggravating or relieving factors at this time. Reports cough is worse at night. Denies history of acid reflux. Denies hx of Asthma, COPD or smoking. Ddx considered but are not limited to URI, pneumonia, PE, strep pharyngitis, meningitis. Vital signs: Pt. is afebrile, the remaining VS are WNL H&PE are most consistent with URI- no meningeal signs, oropharynx is not involved, no evidence of bacterial infection at this time. ORDERS: none required at this time, the diagnosis is clinical ED INTERVENTIONS: None required at this time. --PT. EDUCATION: Discussed antibiotic resistance with inappropriate prescribing of antibiotics for viral illnesses. Discussed signs and symptoms to indicate viral illness versus bacterial illness. DISCHARGE: At this time pt. is stable for d/c to home. Will provide printed patient care instructions, and any necessary prescriptions. Care plan and follow up instructions have been discussed with the patient prior to discharge. Last Vital Signs Date Time Temp Pulse Resp B/P (MAP) Pulse Ox O2 Delivery O2 Flow Rate FiO2 03/04/19 12:03 72 18 Room Air 03/04/19 12:03 98.4 146/78 99 Status: unchanged Disposition: HOME, SELF-CARE Condition: Stable Scripts Iron,Carbonyl/Ascorbic Acid (IRON 100-VITAMIN C TABLET) 1 Each Tablet 1 EACH PO DAILY, #30 TAB Prov: Chata Rasmussen 03/04/19 Acetaminophen* (TYLENOL EXTRA STRENGTH*) 500 Mg Tablet 500 MG ORAL Q6H PRN for Mild Pain/Temp > 100.5, #20 TAB 0 Refills Prov: Chata Rasmussen 03/04/19 Guaifenesin (Guaifenesin) 1,200 Mg Tab.er.12h 1200 MG PO Q12HR, #20 TAB Prov: Chata Rasmussen 03/04/19 Cetirizine Hcl/Pseudoephedrine (ZYRTEC-D TABLET) 1 Each Tab.er.12h 1 EACH ORAL Q12HR, #30 TAB Prov: Chata Rasmussen 03/04/19 Codeine/Promethazine Hcl* (PROMETHAZINE-CODEINE SYRUP*) 118 Ml Syrup 5 ML ORAL Q6H PRN for For Cough, #120 ML 0 Refills Prov: Chata Rasmussen 03/04/19 Patient Instructions: Upper Respiratory Infection, Adult Additional Instructions: Take medications as directed. Follow up with a Primary Care Provider in 3-5 days, even if your symptoms have resolved. --Please review list of primary care clinics, if you do not already have a primary care provider Return sooner to ED if new symptoms occur, or current symptoms become worse. Do not drink alcohol, drive, or operate heavy machinery while taking Cough Syrup as this may cause drowsiness. - Please note that this Emergency Department Report was dictated using Emcoreon[employer] tier technology software, occasionally this can lead to erroneous entry secondary to interpretation by the dictation equipment. Chata Rasmussen Mar 04, 2019 12:23
[2019-03-04] MEDS ORDERED: ZYRTEC-D TABLE1 EACH ORAL (12:25)
[2019-03-04] MEDS ORDERED: TYLENOL EXTRA500 MG ORAL (12:25)
[2019-03-04] MEDS ORDERED: PROMETHAZINE-C118 M1 ORAL (12:25)
[2019-03-04] MEDS ORDERED: GUAIFENESIN1200 MG PO (12:25)
[2019-03-04 12:40] VITALS: BP 125/82
[2019-03-04] MEDS ORDERED: IRON 100-VITAM1 EACH PO (12:40)
== END 2019-03-04 12:20 | disposition home or self-care (01) ==
LOC: EMR 12:10
DX: J06.9 Acute upper respiratory infection, unspecified (principal); B34.9 Viral infection, unspecified; Z88.6 Allergy status to analgesic agent
CPT/HCPCS: 99282

== ENCOUNTER 2019-05-20 11:47 | Emergency (ER) | payer MEDICAID ==
[~2019-05-20] VITALS: Ht 167.6 cm; Wt 108.9 kg
[~2019-05-20 11:47] MED LIST changes: +GUAIFENESIN1200 MG PO; +IRON 100-VITAM1 EACH PO; +PROMETHAZINE-C118 M1 ORAL; +ZYRTEC-D TABLE1 EACH ORAL
[2019-05-20 12:09] VITALS: BP 156/96
--- NOTE | 2019-05-20 12:11 | Emergency Room Report ---
History of Present Illness General Chief Complaint: Pain Source: Patient Present Illness HPI 28-year-old female with no significant past medical history here complaining of pain and pressure in her right nostril as well as periorbital and a rash that appeared today. Patient denies tingling sensation prior to appearance of rash and is worried about shingles. Patient denies blurry vision. Patient denies rhinorrhea, congestion, recent URI symptoms. Patient has a nose ring placed however says that she has had that for a while. Denies pus drainage from the nose rating the pain 5 out of 10 without radiation denying tingling and numbness. Patient tried to ice the affected area however felt like the rash appeared after she applied ice that she is very sensitive skin. Denies chest pain, shortness of breath, palpitation, fever chills, nausea vomiting, and all other associated symptoms. Patient has not taken any medication for her symptoms. Allergies: Coded Allergies: MORPHINE (Verified Allergy, Mild, pruritis, 03/04/19) Patient History Past Medical History: see triage record Past Surgical History: unable to obtain Pertinent Family History: none Last Menstrual Period: on period Now: No Immunizations: UTD Reviewed Nursing Documentation: PMH: Agreed; PSxH: Agreed Nursing Documentation-PMH Past Medical History: No History, Except For Review of Systems All Other Systems: negative except mentioned in HPI Physical Exam Vital Signs Date Time Temp Pulse Resp B/P (MAP) Pulse Ox O2 Delivery O2 Flow Rate FiO2 05/20/19 11:58 98.2 77 17 156/96 (116) 98 Room Air Sp02 EP Interpretation: reviewed, normal General Appearance: normal inspection, well appearing, no apparent distress, alert, GCS 15 Head: normocephalic, atraumatic Eyes: bilateral eye normal inspection, bilateral eye PERRL ENT: normal pharynx, no angioedema, TMs + canals normal, uvula midline, other - Erythema of right nostril and right maxillary and periorbital tender to palpation with faint macular rash Neck: normal inspection, full range of motion, supple Respiratory: normal inspection, chest non-tender, lungs clear, normal breath sounds Cardiovascular #1: normal inspection, normal peripheral pulses, regular rate, rhythm, no murmur Gastrointestinal: normal inspection, soft Genitourinary: no CVA tenderness Musculoskeletal: normal inspection, back normal Neurologic: normal inspection, alert, oriented x3 Psychiatric: normal inspection, judgement/insight normal Skin: palpation normal, rash - Macular rash and periorbital right maxillary Lymphatic: normal inspection, no adenopathy Medical Decision Making PA Attestation All my diagnosis and treatment plans were reviewed ad discussed with my supervising physician Dr. Martines Diagnostic Impression: Primary Impression: Staphylococcus infection of nose Additional Impression: Periorbital cellulitis ER Course 28-year-old female with no significant past medical history here complaining of pain and pressure in her right nostril as well as periorbital and a rash that appeared today. Patient denies tingling sensation prior to appearance of rash and is worried about shingles. Patient denies blurry vision. Patient denies rhinorrhea, congestion, recent URI symptoms. Patient has a nose ring placed however says that she has had that for a while. Denies pus drainage from the nose rating the pain 5 out of 10 without radiation denying tingling and numbness. Patient tried to ice the affected area however felt like the rash appeared after she applied ice that she is very sensitive skin. Denies chest pain, shortness of breath, palpitation, fever chills, nausea vomiting, and all other associated symptoms. Patient has not taken any medication for her symptoms. Ddx considered but are not limited to : Cellulitis, shingles, staphylococcal infection of the nose, eczema Vital signs: are WNL, pt. is afebrile H&PE are most consistent with: Periorbital cellulitis secondary to staphylococcal infection of the nose ORDERS: Augmentin, Bactroban ED INTERVENTIONS: None required at this time. DISCHARGE: At this time pt. is stable for d/c to home. Will provide printed patient care instructions, and any necessary prescriptions. Care plan and follow up instructions have been discussed with the patient prior to discharge. Patient to follow-up with a primary care physician if symptoms continue or worsen also tingling sensation and blister formation return to the emergency room rash secondary to applying ice over affected area Last Vital Signs Date Time Temp Pulse Resp B/P (MAP) Pulse Ox O2 Delivery O2 Flow Rate FiO2 05/20/19 11:58 98.2 77 17 156/96 (116) 98 Room Air Disposition: HOME, SELF-CARE Condition: Stable Scripts Mupirocin (MUPIROCIN) 15 Gm Cream..g. 1 APPLIC TOPIC THREE TIMES A DAY, #15 GM Prov: Gabriel Roberts 05/20/19 Amoxicillin/Potassium Clav 875-125* (AUGMENTIN 875-125 TABLET*) 1 Each Tablet 1 TAB ORAL TWICE A DAY for 10 Days, #20 TAB Prov: Gabriel Roberts 05/20/19 Patient Instructions: Cellulitis, Staphylococcal Infection Additional Instructions: Take medication as directed avoid wearing your nose ring avoid using facial make -up and irritants. If any new symptoms blister formation be reevaluated Gabriel Roberts May 20, 2019 12:11
[2019-05-20] MEDS ORDERED: MUPIROCIN15 GM TOPIC (12:13)
[2019-05-20] MEDS ORDERED: AUGMENTIN 875-1 EAC1 ORAL (12:13)
--- NOTE | 2019-05-20 12:13 | NUR ---
ED Nurse Note:pt. came with right sided nose pain and obstruction
--- NOTE | 2019-05-20 12:33 | NUR ---
ER DISCHARGE NOTE: Patient is cleared to be discharged per ERMD, pt is aox4, on room air, with stable vital signs. pt was given dc and prescription instructions, pt was able to verbalize understanding, pt is able to ambulate with steady gait. pt took all belongings.
== END 2019-05-20 12:17 | disposition home or self-care (01) ==
LOC: EMR 12:10
DX: L03.213 Periorbital cellulitis (principal); B95.8 Unspecified staphylococcus as the cause of diseases classified elsewhere; Z88.6 Allergy status to analgesic agent
CPT/HCPCS: 99282

== ENCOUNTER 2019-11-25 06:29 | Emergency (ER) | payer MEDICAID ==
[~2019-11-25] VITALS: Ht 167.6 cm; Wt 86.2 kg
[~2019-11-25 06:29] MED LIST changes: +AUGMENTIN 875-1 EAC1 ORAL; +MUPIROCIN15 GM TOPIC
[2019-11-25 06:42] VITALS: BP 151/93
--- NOTE | 2019-11-25 06:42 | NUR ---
ED Nurse Note: Walk-in patient with complaints of flu-like symptoms and bilateral ear pain.
[2019-11-25] MEDS ORDERED: Acetaminophen 500mg (ES) tab ORAL ONE (06:45)
[2019-11-25] MEDS ORDERED: AUGMENTIN 875-1 EAC1 ORAL (06:47)
--- NOTE | 2019-11-25 06:47 | Emergency Room Report ---
History of Present Illness General Chief Complaint: Flu Like Symptoms Source: Patient Present Illness HPI 29-year-old female with cough, congestion, bilateral ear pain x6 days no aggravating alleviating factor severity is moderate, constant, patient denies any fevers chills, patient presents for evaluation Allergies: Coded Allergies: MORPHINE (Verified Allergy, Mild, pruritis, 03/04/19) Patient History Past Medical History: see triage record Now: No Reviewed Nursing Documentation: PMH: Agreed; PSxH: Agreed Nursing Documentation-PMH Past Medical History: No History, Except For Review of Systems All Other Systems: negative except mentioned in HPI Physical Exam Vital Signs Date Time Temp Pulse Resp B/P (MAP) Pulse Ox O2 Delivery O2 Flow Rate FiO2 11/25/19 06:33 98.2 112 18 151/93 (112) 95 Room Air Sp02 EP Interpretation: reviewed, normal General Appearance: well appearing, no apparent distress, alert Head: normocephalic, atraumatic Eyes: bilateral eye PERRL, bilateral eye EOMI ENT: uvula midline, moist mucus membranes, nasal congestion, other - Bilateral TMS erythematous Neck: supple, thyroid normal, supple/symm/no masses Respiratory: lungs clear, no respiratory distress, no retraction, no accessory muscle use Cardiovascular #1: normal peripheral pulses, regular rate, rhythm, no edema, no gallop, no murmur Gastrointestinal: non tender, soft, no guarding, no rebound Musculoskeletal: normal inspection Neurologic: alert, oriented x3 Psychiatric: mood/affect normal Skin: no rash, warm/dry Medical Decision Making Diagnostic Impression: Primary Impression: Otitis media Qualified Codes: H66.003 - Acute suppurative otitis media without spontaneous rupture of ear drum, bilateral ER Course 29-year-old female presents with bilateral otitis media will treat, disposition home with return precautions Patient does not want to check a urine preg aware of risks and benefits Last Vital Signs Date Time Temp Pulse Resp B/P (MAP) Pulse Ox O2 Delivery O2 Flow Rate FiO2 11/25/19 06:33 98.2 112 18 151/93 (112) 95 Room Air Disposition: HOME, SELF-CARE Condition: Stable Scripts Amoxicillin/Potassium Clav 875-125* (AUGMENTIN 875-125 TABLET*) 1 Each Tablet 1 TAB ORAL TWICE A DAY, #20 TAB Prov: Demond Joseph MD 11/25/19 Referrals: [facility] Amy Tolentino. [facility] Patient Instructions: Otitis Media, Adult, [id number] Additional Instructions: The patient was provided with discharge instructions, notified to follow-up with a primary care doctor and or specialist in the next 24-48 hours, and to return to the ED if they have worsening of their symptoms. Please note that this report is being documented using DRAGON technology. This can lead to erroneous entry secondary to incorrect interpretation by the dictating instrument. Demond Joseph MD Nov 25, 2019 06:47
--- NOTE | 2019-11-25 06:55 | NUR ---
ED Nurse Note: Patient cleared for discharge by ANTONIO. Patient verbalized understanding of discharge instructions. ID band removed. patient departed with all belongings accompanied by her mom.
[2019-11-25 06:56] VITALS: BP 151/93
== END 2019-11-25 06:55 | disposition home or self-care (01) ==
LOC: EMR 06:48
DX: H66.003 Acute suppurative otitis media without spontaneous rupture of ear drum, bilateral (principal); Z88.6 Allergy status to analgesic agent
CPT/HCPCS: 99282